=== PATIENT | male | born 2000 ===

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

== ENCOUNTER 2020-03-29 18:57 | Emergency (ER) | payer OTHER ==
[~2020-03-29] VITALS: Ht 188 cm; Wt 72.6 kg
[~2020-03-29 18:57] MED LIST changes: +IBUP800 PO; +Robaxin-750750 MG PO
[2020-03-29] MEDS ORDERED: ALBU90OI INH (19:07)
[2020-03-29] MEDS ORDERED: Permethrin60 GM TOP (21:42)
== END 2020-03-29 21:48 | disposition home or self-care (01) ==
LOC: ER 18:57
DX: B86 Scabies (principal); Z79.899 Other long term (current) drug therapy
CPT/HCPCS: 99282

== ENCOUNTER 2020-08-05 18:27 | Emergency (ER) | payer OTHER ==
[~2020-08-05 18:27] MED LIST changes: +Permethrin60 GM TOP
== END 2020-08-05 19:26 | disposition left against medical advice (07) ==
LOC: ER 18:27
DX: Z53.21 Procedure and treatment not carried out due to patient leaving prior to being seen by health care provider (principal)

== ENCOUNTER 2023-09-26 11:36 | Emergency (ER) | payer OTHER ==
[~2023-09-26] VITALS: Ht 188 cm; Wt 90.7 kg
[~2023-09-26 11:36] MED LIST changes: +Amoxicillin500 MG PO
[2023-09-26 11:58] VITALS: BP 144/82
== END 2023-09-26 12:55 | disposition home or self-care (01) ==
LOC: ER 11:36
DX: R07.89 Other chest pain (principal); R06.02 Shortness of breath; Z91.49 Other personal history of psychological trauma, not elsewhere classified; Z79.899 Other long term (current) drug therapy
CPT/HCPCS: 71046; 99284-25

== ENCOUNTER 2025-01-02 10:11 | Emergency (ER) | payer OTHER ==
[~2025-01-02] VITALS: Ht 188 cm; Wt 82.1 kg
[2025-01-02 11:02] VITALS: BP 165/98
[2025-01-02] MEDS ORDERED: Norco 5-325 Ta1 EACH PO (12:24)
== END 2025-01-02 14:06 | disposition home or self-care (01) ==
LOC: ER 10:11
DX: M25.561 Pain in right knee (principal)
CPT/HCPCS: 73562-RT; 99283-25